=== PATIENT | female | born 1940 | race Caucasian/White ===

== ENCOUNTER → 2016-11-29 | Outpatient (CLI) | payer OTHER, MEDICARE | LOC: BHLMT 15:30 | PROVIDERS: ATTEND Internal Medicine Interventional Cardiology | DX: I36.8 Other nonrheumatic tricuspid valve disorders (principal); I10 Essential (primary) hypertension; D69.6 Thrombocytopenia, unspecified; R79.89 Other specified abnormal findings of blood chemistry | CPT/HCPCS: 93306-PO ==

== ENCOUNTER → 2016-12-07 | Outpatient (CLI) | payer OTHER, MEDICARE ==
--- NOTE | 2016-12-07 10:51 | US ---
Ultrasound of the Abdomen Complete History: R 79.89, abnormal liver function tests Findings: Gallbladder: A few subcentimeter mobile shadowing calculi in the gallbladder measuring up to 7 mm. No gallbladder Wall thickening, or pericholecystic fluid. Common bile duct is 3 mm in diameter which is normal. Liver: Homogeneous in echogenicity and measures 13 cm in length. No definite focal lesions. Renal: Right kidney measures 10 x 5 x 5 cm and left kidney 9 x 4 x 3 cm without hydronephrosis in eit her kidney. Spleen: Homogeneous and 9 cm in length without splenomegaly. Pancreas: Homogeneous without peripancreatic fluid. Aorta: Visualized upper abdominal aorta demonstrates no aneurysm. IVC: Grossly patent. Impression: 1. Cholelithiasis with several mobile shadowing gallstones. 2. No gallbladder wall thickening, pericholecystic fluid or biliary ductal dilation. 3. No hepatomegaly or ascites.
== END ==
LOC: FIMAGING 08:43
PROVIDERS: ATTEND Internal Medicine
DX: R79.89 Other specified abnormal findings of blood chemistry (principal); K80.20 Calculus of gallbladder without cholecystitis without obstruction; D69.6 Thrombocytopenia, unspecified

== ENCOUNTER → 2017-03-30 | Outpatient (CLI) | payer OTHER, MEDICARE | LOC: BRMIMAGING 09:58 | PROVIDERS: ATTEND Internal Medicine | DX: Z13.820 Encounter for screening for osteoporosis (principal); M85.80 Other specified disorders of bone density and structure, unspecified site; N95.8 Other specified menopausal and perimenopausal disorders ==

== ENCOUNTER → 2018-04-12 | Outpatient (CLI) | payer OTHER, MEDICARE | LOC: BHLMT 10:15 | PROVIDERS: ATTEND Internal Medicine Interventional Cardiology | DX: E21.3 Hyperparathyroidism, unspecified (principal); I10 Essential (primary) hypertension; I65.29 Occlusion and stenosis of unspecified carotid artery; E78.5 Hyperlipidemia, unspecified | CPT/HCPCS: 93005-PO ==

== ENCOUNTER → 2019-04-03 | Outpatient (CLI) | payer OTHER, MEDICARE | LOC: FIMAGING 12:42 ==